=== PATIENT | female | born 1960 | race Caucasian/White ===

== ENCOUNTER 2017-07-13 18:48 | Emergency (ER) | payer BC ==
[2017-07-13 19:56] VITALS: BP 152/82
--- NOTE | 2017-07-14 06:14 | ED ---
Rayray Salvador Nikita, scribed for Thomas Faust MD on 07/13/17 at 1917 . Throat Pain/Nasal Congestion - HPI Summary HPI Summary: This patient is a 56 year old F presenting to ED with a chief complaint of visual disturbances since 0.5 hours ago. The CC is described as bonafide flashes in the peripheral of the L eye. The patient rates the pain 0/10 in severity. Symptoms aggravated by nothing. Symptoms alleviated by spontaneous resolution. Patient denies floaters, pain in the L eye, sensitivity to light in the L eye, TORRES, and any recent eye procedures. Denies loss of vision in the R eye post-surgery. The patient had surgery for retina detachment 2 years ago in [place]. - History of Current Complaint Chief Complaint: EDEyeProblem Time Seen by Provider: 07/13/17 19:01 Hx Obtained From: Patient Onset/Duration: Sudden Onset, Lasting Hours - 0.5 hours ago., Resolved - Allergies/Home Medications Allergies/Adverse Reactions: Allergies Allergy/AdvReac Type Severity Reaction Status Date / Time MS Penicillins [PCN] Allergy Airway Verified 10/13/14 18:27 Obstruction PMH/Surg Hx/FS Hx/Imm Hx Endocrine/Hematology History: Denies: Hx Diabetes Cardiovascular History: Denies: Hx Coronary Artery Disease, Hx Hypertension - Surgical History Other Surgical History: retina detachment (2 years ago) Infectious Disease History: No Infectious Disease History: Denies: Traveled Outside the [place] in Last 30 Days - Social History Alcohol Use: Occasionally Substance Use Type: Reports: None Smoking Status (MU): Never Smoked Tobacco Review of Systems Positive: Other - visual disturbances (flashes); denies floaters, pain in the L eye, sensitivity to light in the L eye, any recent eye procedures Negative: Headache All Other Systems Reviewed And Are Negative: Yes Physical Exam - Summary Physical Exam Summary: Appearance: Well appearing, no pain distress Skin: warm, dry, reflects adequate perfusion Head/face: normal Eyes: EOMI, TEZ, Extraocular movement intact, accommodation is intact. Has both direct and consensual light reflex, No definite hemorrhages, Globes are soft. ENT: normal Neck: supple, non-tender Respiratory: CTA, breath sounds present Cardiovascular: RRR, pulses symmetrical Abdomen: non-tender, soft Bowel: present Musculoskeletal: normal, strength/ROM intact Neuro: normal, sensory motor intact, A&Ox3 Triage Information Reviewed: Yes Vital Signs On Initial Exam: Initial Vitals Temp Pulse Resp BP Pulse Ox 99.4 F 105 18 155/87 100 07/13/17 18:51 07/13/17 18:51 07/13/17 18:51 07/13/17 18:51 07/13/17 18:51 Vital Signs Reviewed: Yes Diagnostics - Vital Signs Vital Signs Temp Pulse Resp BP Pulse Ox 07/13/17 18:51 99.4 F 105 18 155/87 100 - Laboratory Lab Statement: Any lab studies that have been ordered have been reviewed, and results considered in the medical decision making process. Re-Evaluation - Re-Evaluation First Eval Change: Improved EENT Course/Dx - Course Course Of Treatment: Acquities wnl. Visual confrontation nl. Globes soft. Will need dilated exam. Call her ophtho office and they will see her first thing Saturday. No visual loss. - Differential Diagnoses Differential Diagnoses: Other - visual floaters with hx of retinal detachment - Diagnoses Provider Diagnoses: Visual floaters, Hx of retinal detachment - Provider Notifications Discussed Care Of Patient With: Raffaele Matthews Time Discussed With Above Provider: 19:38 Instructed by Provider To: Other - Consulted Dr. Matthews who agrees to follow up and see the patient in his office on Saturday. Discharge - Discharge Plan Condition: Good Disposition: HOME Patient Education Materials: Visual Floaters (ED) Referrals: Raffaele Matthews MD [Medical Doctor] - Additional Instructions: Eye doctor's office will call you Saturday morning for an appt that day. Return with loss of vision, worse or other concerns as discussed. The documentation as recorded by the Rayray aleman Nikita accurately reflects the service I personally performed and the decisions made by me, Thomas Faust MD.
== END 2017-07-13 19:55 | disposition home or self-care (01) ==
LOC: ED 18:48
DX: H43.399 Other vitreous opacities, unspecified eye (principal); H33.20 Serous retinal detachment, unspecified eye; Z86.69 Personal history of other diseases of the nervous system and sense organs
CPT/HCPCS: 99282

== ENCOUNTER 2018-12-08 12:54 | Emergency (ER) | payer BC ==
[2018-12-08 13:03] VITALS: BP 157/82
--- NOTE | 2018-12-08 13:13 | UC ---
Skin Complaint HPI - HPI Summary HPI Summary: 58 yo female presents with burn to left hand. She tells me that 2 days ago she was frying oil and some of it splattered. She sustained an oil burn to her left hand. Since that time has developed large blisters overlying the area. She is left handed. Last tetanus was within the last 5 years. She has mild pain. Denies fever or chills. - History of Current Complaint Chief Complaint: UCBurn Time Seen by Provider: 12/08/18 13:13 Stated Complaint: LT HAND BURN Hx Obtained From: Patient Onset/Duration: Sudden Onset Onset Severity: Moderate Current Severity: Mild Pain Intensity: 3 Pain Scale Used: 0-10 Numeric - Allergy/Home Medications Allergies/Adverse Reactions: Allergies Allergy/AdvReac Type Severity Reaction Status Date / Time MS Penicillins [PCN] Allergy Airway Verified 10/13/14 18:27 Obstruction Penicillins Allergy air way Verified 12/08/18 13:03 obstruction PMH/Surg Hx/FS Hx/Imm Hx - Additional Past Medical History Additional PMH: None - Surgical History Surgical History: Yes Surgery Procedure, Year, and Place: detatched retina,ovary removed Other Surgical History: retina detachment (2 years ago) - Family History Known Family History: Positive: Non-Contributory - Social History Lives: With Family Alcohol Use: Occasionally Substance Use Type: None Smoking Status (MU): Never Smoked Tobacco Review of Systems All Other Systems Reviewed And Are Negative: Yes Constitutional: Positive: Negative Skin: Positive: Other - Burn left hand Respiratory: Positive: Negative Cardiovascular: Positive: Negative Gastrointestinal: Positive: Negative Neurovascular: Positive: Negative Musculoskeletal: Positive: Negative Neurological: Positive: Negative Psychological: Positive: Negative Physical Exam - Summary Physical Exam Summary: GENERAL: NAD. WDWN. No pain distress. SKIN: LEFT HAND: Overlying the dorsal thumb there is a large blister extending from the IP joint to the mid MC going over the MCP. Medium blister at the dorsal proximal phalanx of the index finger. No drainage, erythema, warmth, or open wounds. CHEST: No accessory muscle use. Breathing comfortably and in no distress. CV: Pulses intact. Cap refill <2seconds MSK: Decreased ROM due to blisters. NEURO: Alert. PSYCH: Age appropriate behavior. Triage Information Reviewed: Yes Vital Signs: Initial Vital Signs Temp 98 F 12/08/18 13:00 Pulse 91 12/08/18 13:00 Resp 17 12/08/18 13:00 BP 157/82 12/08/18 13:00 Pulse Ox 100 12/08/18 13:00 Vital Signs Reviewed: Yes Course/Dx - Course Course Of Treatment: Discussed with Dr. Lares, who also viewed the danielson - agreed with lancing the large blisters and placing a dry dressing. No need for burn center at this time , but will have her f/u with surgery to insure proper healing. The blisters were cleansed with an alcohol pad and an 18G needle was used to cheryl the most inferior portions of the blisters and copious thin, watery, clear/yellow fluid was expressed. Blister flattened. Telfa and gauze applied. - Diagnoses Provider Diagnosis: Burn of left hand Discharge - Sign-Out/Discharge Documenting (check all that apply): Patient Departure All imaging exams completed and their final reports reviewed: No Studies - Discharge Plan Condition: Stable Disposition: HOME Patient Education Materials: Second Degree Burn (ED) Referrals: Marii Anna MD [Primary Care Provider] - Jigar Thrasher MD [Medical Doctor] - 1 Week Additional Instructions: If you develop a fever, shortness of breath, chest pain, new or worsening symptoms - please call your PCP or go to the ED immediately. Your blood pressure was high at todays visit. Please see your primary provider within 4 weeks for recheck and re-evaluation. Apply a dry dressing to the areas daily until well healed. Change the dressing daily. Given that the burn occurred over a joint, I recommend that you follow up with a general surgeon to insure proper healing - Billing Disposition and Condition Condition: STABLE Disposition: Home
== END 2018-12-08 14:10 | disposition home or self-care (01) ==
LOC: UCEAST 12:54
DX: T23.002A Burn of unspecified degree of left hand, unspecified site, initial encounter (principal); T31.0 Burns involving less than 10% of body surface; X10.2XXA Contact with fats and cooking oils, initial encounter; Y93.G3 Activity, cooking and baking; Y92.010 Kitchen of single-family (private) house as the place of occurrence of the external cause; Y99.8 Other external cause status; Z88.0 Allergy status to penicillin
CPT/HCPCS: 99212; G0463